=== PATIENT | male | born 1965 ===

== ENCOUNTER 2022-09-02 13:10 | Emergency (ER) | payer MEDICAID ==
[~2022-09-02] VITALS: Ht 160 cm; Wt 65.0 kg
[2022-09-02 13:14] VITALS: BP 131/86
== END 2022-09-02 18:17 | disposition left against medical advice (07) ==
LOC: ER 13:11
DX: M25.562 Pain in left knee (principal); Z53.21 Procedure and treatment not carried out due to patient leaving prior to being seen by health care provider